=== PATIENT | male | born 1980 | race Hispanic/Latino ===

== ENCOUNTER 2024-06-25 21:32 | Inpatient (IN) | payer BC ==
[~2024-06-25] VITALS: Ht 172.7 cm; Wt 78.0 kg
[2024-06-25 22:33] VITALS: RESP 16; TEMP 98.3
[2024-06-25] MEDS: SODIUM CHLORIDE 0.9% 1000ML 1,000 ML IV ONE (22:46)
[2024-06-25] MEDS ORDERED: SODIUM CHLORIDE 0.9% 1000ML 1,000 ML ONE (22:49)
[2024-06-25 22:52] LABS: BASOPHILS % 0.2 % (0.0-1.0); HEMATOCRIT 45.9 % (38.2-49.6); HEMOGLOBIN 15.5 g/dL (14.0-18.0); LYMPHOCYTES # (AUTO) 1.3 (1.0-3.2); LYMPHOCYTES % 7.3 % (18.0-39.1); MEAN CORPUSCULAR HEMOGLOBIN 30.5 pg (28-32); MEAN CORPUSCULAR HGB CONC 33.8 g/dL (31-35); MEAN CORPUSCULAR VOLUME 90.2 fL (81-99); MONOCYTES % 5.7 % (4.4-11.3); NEUTROPHILS # (AUTO) 14.7 (2.1-6.9); NEUTROPHILS % 85.8 % (38.7-80.0); PLATELET COUNT 332 x10e3/uL (140-360); RED BLOOD COUNT 5.09 x10e6/uL (4.3-5.7); RED CELL DISTRIBUTION WIDTH 13.5 % (11.7-14.4); WHITE BLOOD COUNT 17.17 x10e3/uL (4.8-10.8)
[2024-06-25 23:07] LABS: ALBUMIN 5.2 g/dL (3.5-5.0); ALBUMIN/GLOBULIN RATIO 1.3 (0.8-2.0); ANION GAP 17.1 mmol/L (8-16); BILIRUBIN,TOTAL 0.7 mg/dL (0.2-1.2); CALCIUM 10.8 mg/dL (8.4-10.2); CREATININE, SERUM 2.54 mg/dL (0.72-1.25); POTASSIUM 4.1 mmol/L (3.5-5.1); TOTAL PROTEIN 9.3 g/dL (6.5-8.1)
[2024-06-26] VITALS (10 sets, daily range): BP systolic 106–125; BP diastolic 71–81; PULSE 58–80; RESP 16–22; TEMP 98.1–98.8; O2SAT 96–100
[2024-06-26] MEDS ORDERED: ONDANSETRON HCL INJ 2MG/ML 2ML 2 MG/ML VIAL IV PRN (00:15)
[2024-06-26] MEDS: SODIUM CHLORIDE 0.9% 1000ML 1,000 ML IV ONE ×2 (00:43→14:51)
[2024-06-26] MEDS ORDERED: SIMETHICONE 80 MG CHEW PO PRN (01:30)
[2024-06-26] MEDS ORDERED: DEXTROSE 50% SYRINGE 50 ML IV PRN (01:30)
[2024-06-26] MEDS ORDERED: BENZONATATE 100 MG CAP PO PRN (01:30)
[2024-06-26] MEDS ORDERED: DIPHENHYDRAMINE HCL 25 MG CAP PO PRN (01:30)
[2024-06-26] MEDS ORDERED: HYDRALAZINE HCL 20 MG/ML VIAL IV PRN (01:30)
[2024-06-26] MEDS ORDERED: ACETAMINOPHEN 325 MG TAB PO PRN (01:30)
[2024-06-26] MEDS ORDERED: LIDOCAINE 4% PATCH TP PRN (01:30)
[2024-06-26] MEDS ORDERED: DOCUSATE SODIUM 100 MG CAP PO PRN (01:30)
[2024-06-26] MEDS ORDERED: ALBUTEROL/IPRATROPIUM 3 ML NEB NEB PRN (01:30)
[2024-06-26] MEDS ORDERED: MELATONIN 5 MG TABLET PO PRN (01:30)
[2024-06-26] MEDS: SODIUM CHLORIDE 0.9% 1000ML 1,000 ML IV SCH (02:01)
[2024-06-26] MEDS: TRAMADOL HCL 50 MG TAB PO PRN (02:42)
[2024-06-26] MEDS ORDERED: IBUPROFEN400 MG PO (04:13)
[2024-06-26] MEDS ORDERED: MAGNESIUM OXID400 MG PO (04:13)
[2024-06-26] MEDS ORDERED: AMOXICILLIN500 MG PO (04:13)
[2024-06-26 07:03] LABS: ANION GAP 12.6 mmol/L (8-16); CALCIUM 8.5 mg/dL (8.4-10.2); CREATININE, SERUM 1.1 mg/dL (0.72-1.25); MAGNESIUM 2.2 MG/DL (1.3-2.1); POTASSIUM 3.6 mmol/L (3.5-5.1)
[2024-06-26 07:13] LABS: THYROID STIMULATING HORMONE 9.493 uIU/mL (0.350-4.940)
[2024-06-26] MEDS: PANTOPRAZOLE SOD 40 MG TABEC PO SCH (08:49)
[2024-06-26 14:06] LABS: BASOPHILS % 0.2 % (0.0-1.0); EOSINOPHILS % 0.3 % (0.0-6.0); HEMATOCRIT 39.9 % (38.2-49.6); HEMOGLOBIN 12.6 g/dL (14.0-18.0); LYMPHOCYTES # (AUTO) 2.3 (1.0-3.2); MEAN CORPUSCULAR HEMOGLOBIN 30.2 pg (28-32); MEAN CORPUSCULAR HGB CONC 31.6 g/dL (31-35); MEAN CORPUSCULAR VOLUME 95.7 fL (81-99); MONOCYTES # (AUTO) 1.1 (0.2-0.8); MONOCYTES % 9.4 % (4.4-11.3); NEUTROPHILS # (AUTO) 7.8 (2.1-6.9); NEUTROPHILS % 69.2 % (38.7-80.0); PLATELET COUNT 268 x10e3/uL (140-360); RED BLOOD COUNT 4.17 x10e6/uL (4.3-5.7); RED CELL DISTRIBUTION WIDTH 14.1 % (11.7-14.4); WHITE BLOOD COUNT 11.26 x10e3/uL (4.8-10.8)
[2024-06-26] MEDS: ENOXAPARIN SOD INJ 40 MG/0.4 ML SYR SC SCH (16:49)
[2024-06-27] VITALS (10 sets, daily range): BP systolic 117–139; BP diastolic 69–85; PULSE 57–70; RESP 17–20; TEMP 97.9–98.3; O2SAT 94–100
[2024-06-27 06:28] LABS: BASOPHILS % 0.3 % (0.0-1.0); EOSINOPHILS # (AUTO) 0.1 (0.0-0.4); HEMATOCRIT 35.1 % (38.2-49.6); HEMOGLOBIN 11.2 g/dL (14.0-18.0); LYMPHOCYTES # (AUTO) 2.1 (1.0-3.2); LYMPHOCYTES % 35.5 % (18.0-39.1); MEAN CORPUSCULAR HEMOGLOBIN 30.4 pg (28-32); MEAN CORPUSCULAR HGB CONC 31.9 g/dL (31-35); MEAN CORPUSCULAR VOLUME 95.1 fL (81-99); MONOCYTES # (AUTO) 0.5 (0.2-0.8); MONOCYTES % 8.6 % (4.4-11.3); NEUTROPHILS # (AUTO) 3.2 (2.1-6.9); NEUTROPHILS % 53.6 % (38.7-80.0); PLATELET COUNT 218 x10e3/uL (140-360); RED BLOOD COUNT 3.69 x10e6/uL (4.3-5.7); RED CELL DISTRIBUTION WIDTH 14.1 % (11.7-14.4); WHITE BLOOD COUNT 5.92 x10e3/uL (4.8-10.8)
[2024-06-27 06:56] LABS: ALBUMIN 3.4 g/dL (3.5-5.0); ALBUMIN/GLOBULIN RATIO 1.5 (0.8-2.0); ANION GAP 9.8 mmol/L (8-16); BILIRUBIN,TOTAL 0.4 mg/dL (0.2-1.2); CALCIUM 7.8 mg/dL (8.4-10.2); CREATININE, SERUM 0.75 mg/dL (0.72-1.25); POTASSIUM 3.8 mmol/L (3.5-5.1); TOTAL PROTEIN 5.7 g/dL (6.5-8.1)
[2024-06-27] MEDS: SODIUM CHLORIDE 0.9% 1000ML 1,000 ML IV ONE (15:15)
[2024-06-27] MEDS: SODIUM CHLORIDE 0.9% 1000ML 1,000 ML IV SCH (18:09)
[2024-06-28 03:00] VITALS: BP 115/75; PULSE 70; RESP 16; TEMP 98.3; O2SAT 100
[2024-06-28 05:38] LABS: BASOPHILS % 0.4 % (0.0-1.0); EOSINOPHILS # (AUTO) 0.1 (0.0-0.4); EOSINOPHILS % 0.9 % (0.0-6.0); HEMATOCRIT 35.5 % (38.2-49.6); HEMOGLOBIN 11.1 g/dL (14.0-18.0); LYMPHOCYTES # (AUTO) 1.8 (1.0-3.2); LYMPHOCYTES % 22.6 % (18.0-39.1); MEAN CORPUSCULAR HEMOGLOBIN 29.9 pg (28-32); MEAN CORPUSCULAR HGB CONC 31.3 g/dL (31-35); MEAN CORPUSCULAR VOLUME 95.7 fL (81-99); MONOCYTES # (AUTO) 0.6 (0.2-0.8); MONOCYTES % 7.8 % (4.4-11.3); NEUTROPHILS # (AUTO) 5.4 (2.1-6.9); NEUTROPHILS % 67.4 % (38.7-80.0); PLATELET COUNT 212 x10e3/uL (140-360); RED BLOOD COUNT 3.71 x10e6/uL (4.3-5.7); WHITE BLOOD COUNT 7.98 x10e3/uL (4.8-10.8)
[2024-06-28 05:59] LABS: ANION GAP 10.6 mmol/L (8-16); CALCIUM 7.9 mg/dL (8.4-10.2); CREATININE, SERUM 0.7 mg/dL (0.72-1.25); POTASSIUM 3.6 mmol/L (3.5-5.1)
[2024-06-28 06:40] VITALS: PULSE 63; RESP 18; O2SAT 97
[2024-06-28 08:00] VITALS: BP 126/84; PULSE 74; RESP 20; TEMP 98; O2SAT 100
[2024-06-28] MEDS: POTASSIUM CHLORIDE 20 MEQ TAB CR PO PRN (08:24)
[2024-06-28 10:00] VITALS: BP 126/84; PULSE 74; RESP 18; TEMP 98; O2SAT 99
[2024-06-28 16:12] VITALS: BP 128/86; PULSE 63; RESP 14; TEMP 98.2; O2SAT 99
== END 2024-06-28 17:17 | disposition home or self-care (01) | DRG 923 ==
LOC: ER 22:39 → ERHOLD 06-26 00:02 → ICU 06-26 01:52 → OBSVTOIN 06-27 17:46
PROVIDERS: ADMIT Internal Medicine; ATTEND Internal Medicine
DX: T67.5XXA Heat exhaustion, unspecified, initial encounter (principal); N17.9 Acute kidney failure, unspecified; M62.82 Rhabdomyolysis; E86.0 Dehydration; E03.9 Hypothyroidism, unspecified; X30.XXXA Exposure to excessive natural heat, initial encounter; Y99.0 Civilian activity done for income or pay
CPT/HCPCS: 36415; 80048; 80053; 82550; 83735; 84100; 84443; 85025; 94799; 99252; 99284; G0378; J1650; J7030